=== PATIENT | male | born 1955 | race Hispanic/Latino ===

== ENCOUNTER 2019-02-24 23:53 | Emergency (ER) | payer OTHER ==
[2019-02-25 00:01] VITALS: RESP 16
[2019-02-25] MEDS ORDERED: Sodium Chloride 0.9% 1,000 ML IV STA (00:35)
--- NOTE | 2019-02-25 00:59 | ED PDOC ---
HPI: Psych/Substance Abuse Time Seen by Provider: 02/25/19 00:22 Chief Complaint (Nursing): Alcohol Ingestion Chief Complaint (Provider): Alcohol Ingestion ED Caveat: Intoxicated History Per: EMS History/Exam Limitations: intoxication Onset/Duration Of Symptoms: Unknown Current Symptoms Are (Timing): Still Present Modifying Factor(s): Alcohol Additional Complaint(s): 63 y/o male brought in by EMS for public alcohol intoxication and head injury. Patient was found laying on the ground with multiple abrasions to the right side of the face. History from patient limited due to intoxicated state. PMD: no provider Past Medical History Reviewed: Historical Data, Nursing Documentation, Vital Signs Vital Signs: Last Vital Signs Temp 98.2 F 02/24/19 23:57 Pulse 77 02/24/19 23:57 Resp 16 02/24/19 23:57 BP 120/75 02/24/19 23:57 Pulse Ox 99 02/24/19 23:57 Primary Care Provider: FAMILY PROVIDER,NO - Medical History PMH: No Chronic Diseases - Surgical History Surgical History: No Surg Hx - Family History Family History: States: Unknown Family Hx - Social History Alcohol: > 2 Drinks/Day - Allergies Allergies/Adverse Reactions: Allergies Allergy/AdvReac Type Severity Reaction Status Date / Time Unobtainable Allergy Verified 02/25/19 00:01 Review of Systems Review Of Systems: ROS cannot be obtained secondary to pt's inabilty to answer questions. Musculoskeletal: Positive for: Other (head injury/facial injury ) Psych: Positive for: Other (alcohol intoxication) Physical Exam - Reviewed Nursing Documentation Reviewed: Yes Vital Signs Reviewed: Yes - Physical Exam Appears: Positive for: No Acute Distress Head Exam: Negative for: NORMAL INSPECTION (Multiple abrasions noted to the right temporal and right lower jaw. No deformities) Skin: Positive for: Normal Color, Warm, Dry Neck: Positive for: Normal Cardiovascular/Chest: Positive for: Regular Rate, Rhythm. Negative for: Murmur Respiratory: Positive for: Normal Breath Sounds. Negative for: Respiratory Distress Gastrointestinal/Abdominal: Positive for: Normal Exam, Soft. Negative for: Tenderness Extremity: Positive for: Normal ROM Neurological/Psych: Positive for: Awake, Alert, Gait (unsteady), Other (slurred speech, alcohol on breath). Negative for: Oriented (Patient is confused), Motor/Sensory Deficits - Laboratory Results Result Diagrams: 02/25/19 01:44 02/25/19 01:44 - ECG O2 Sat by Pulse Oximetry: 99 (RA) Pulse Ox Interpretation: Normal - Progress Re-evaluation Time: 04:56 Condition: Re-examined, Improved Medical Decision Making Medical Decision Making: Time: 35 Impression: Alcohol intoxication, head/facial injury Plan: -- CT Head w/o Contrast -- CT Maxillofacial w/o Contrast -- Alcohol Serum -- BMP -- Urine Drug Screen -- CBC with Differentials -- Sodium Chloride IV 1000 mls/hr Time: 0125 EXAM: CT Head Without IV contrast. CLINICAL HISTORY: Head injury TECHNIQUE: Axial computed tomography images of the head/brain without intravenous contrast. COMPARISON: None provided. FINDINGS: BRAIN: No acute intraparenchymal hemorrhage. No mass lesion. No CT evidence for acute territorial infarct. No midline shift or extra-axial collections. VENTRICLES: No hydrocephalus. ORBITS: The orbits are unremarkable. SINUSES AND MASTOIDS: The paranasal sinuses and mastoid air cells are clear. BONES: No fracture. SOFT TISSUES: Unremarkable. IMPRESSION: No acute intracranial abnormality. Electronically signed on February 25, 2019 1:25:26 AM EDT by: Ruben Comer M.D., Certified by [facility]BR, Diagnostic Radiology Time: 129 EXAM: CT Maxillofacial without Intravenous Contrast. CLINICAL HISTORY: Facial injury TECHNIQUE: Axial computed tomography images of the face without intravenous contrast. Sagittal and coronal reformatted images were generated. 799.06 mGy-cm CONTRAST: Without COMPARISON: None provided. FINDINGS: BONES: Appreciable just to the right of midline within the maxilla is a small lucent abnormality measuring 1.2 cm on series 601, image 39. This could represent a small periodontal abscess. Other etiologies are not excluded. Please correlate clinically and if indicated followup can be obtained. No evidence for acute facial fractures. SOFT TISSUES: The soft tissues are unremarkable. SINUSES: There is a large mucous retention cyst or polyp within the left maxillary sinus. There is mucosal thickening of multiple bilateral ethmoid air cells. There is mild mucosal thickening of the left sphenoid sinus. There is mucosal thickening of the inferior frontal sinuses. ORBITS: The orbits are normal. No retrobulbar hematoma or mass. IMPRESSION: 1. Sinus disease as described. 2. Appreciable just to the right of midline within the maxilla is a small lucent abnormality measuring 1.2 cm on series 601, image 39. This could represent a small periodontal abscess. Other etiologies are not excluded. Please correlate clinically and if indicated followup can be obtained. 3. No evidence for acute facial fractures. Electronically signed on February 25, 2019 1:30:36 AM EDT by: Ruben Comer M.D., Certified by ABR, Diagnostic Radiology Scribe Attestation: Documented by Sarah Pretty, acting as a scribe Rio Banegas MD. Provider Scribe Attestation: All medical record entries made by the Scribe were at my direction and personally dictated by me. I have reviewed the chart and agree that the record accurately reflects my personal performance of the history, physical exam, medical decision making, and the department course for this patient. I have also personally directed, reviewed, and agree with the discharge instructions and disposition. Disposition - Clinical Impression Clinical Impression: Alcohol abuse, Head injury - Patient ED Disposition Is Patient to be Admitted: No Doctor Will See Patient In The: Office Counseled Patient/Family Regarding: Studies Performed, Diagnosis, Need For Followup - Disposition Referrals: [facility] [Outside] Disposition: Routine/Home Disposition Time: 04:56 Condition: IMPROVED Additional Instructions: IGOR ESCALONA, thank you for letting us take care of you today. Your provider was Fiona Banegas MD and you were treated for AMS. The emergency medical care you received today was directed at your acute symptoms. If you were prescribed any medication, please fill it and take as directed. It may take several days for your symptoms to resolve. Return to the Emergency Department if your symptoms worsen, do not improve, or if you have any other problems. Please contact your doctor or call one of the physicians/clinics you have been referred to that are listed on the Patient Visit Information form that is included in your discharge packet. Bring any paperwork you were given at discharge with you along with any medications you are taking to your follow up visit. Our treatment cannot replace ongoing medical care by a primary care provider outside of the emergency department. Thank you for allowing the [facility] team to be part of your care today. If you had an X-Ray or CT scan: A Radiologist will review the ED reading if any change in treatment is needed we will contact you. Instructions: Alcohol Use - When Is Drinking a Problem?, Minor Head Injury
[2019-02-25 01:52] LABS: BASO # 0.1 K/uL (0.0-0.2); BASO % 0.7 % (0.0-2.0); EOS # 0.2 K/uL (0.0-0.7); HEMOGLOBIN 14.4 g/dL (12.0-18.0); LYMPH # 1.7 K/uL (1.0-4.3); LYMPH % 20.3 % (20.0-40.0); MEAN CORPUSCULAR HEMOGLOBIN 31.4 pg (27.0-31.0); MEAN CORPUSCULAR HGB CONC 35.6 g/dL (33.0-37.0); MEAN PLATELET VOLUME 7.1 fl (7.2-11.7); MONO # 0.5 K/uL (0.0-0.8); MONO % 5.6 % (0.0-10.0); NEUT # 5.9 K/uL (1.8-7.0); NEUT % 71.4 % (50.0-75.0); RBC 4.58 Mil/uL (4.40-5.90); RED CELL DISTRIBUTION WIDTH 13.2 % (11.5-14.5); WHITE BLOOD COUNT 8.3 K/uL (4.8-10.8)
[2019-02-25 02:01] LABS: BLOOD UREA NITROGEN 8 mg/dl (9-20); CALCIUM 8.2 mg/dL (8.4-10.2); GFR NON-AFRICAN AMERICAN > 60
[2019-02-25 05:24] VITALS: BP 127/75; PULSE 80; TEMP 97.8; O2SAT 98
--- NOTE | 2019-02-25 09:57 | CT ---
Date of service: 02/25/2019 PROCEDURE: CT HEAD WITHOUT CONTRAST. HISTORY: head injury COMPARISON: None available. TECHNIQUE: Axial computed tomography images were obtained through the head/brain without intravenous contrast. Radiation dose: Total exam DLP = 1303.73 mGy-cm. This CT exam was performed using one or more of the following dose reduction techniques: Automated exposure control, adjustment of the mA and/or kV according to patient size, and/or use of iterative reconstruction technique. FINDINGS: HEMORRHAGE: No intracranial hemorrhage. BRAIN: No mass effect or edema. No atrophy or chronic microvascular ischemic changes. VENTRICLES: Unremarkable. No hydrocephalus. CALVARIUM: Unremarkable. PARANASAL SINUSES: Ethmoidal bilateral sinus site is suggested. Trace left sphenoid sinus thin mucosal thickening also noted. MASTOID AIR CELLS: Unremarkable as visualized. No inflammatory changes. OTHER FINDINGS: None. IMPRESSION: No intracranial hemorrhage or mass effect. Concordant results (preliminary interpretation) provided by [facility]. Sinusitis primarily ethmoidal air cells-as above. This portion was not mentioned on the prior preliminary [place] report Comments: Study marked for PA review .
--- NOTE | 2019-02-25 10:06 | CT ---
Date of service: 02/25/2019 PROCEDURE: CT MAXILLOFACIAL BONES WITHOUT CONTRAST HISTORY: facial injury COMPARISON: None available. TECHNIQUE: Contiguous axial CT images of the maxillofacial bones were obtained. Coronal and sagittal reformats were generated. Radiation dose: Total exam DLP = 799.06 mGy-cm. This CT exam was performed using one or more of the following dose reduction techniques: Automated exposure control, adjustment of the mA and/or kV according to patient size, and/or use of iterative reconstruction technique. FINDINGS: NASAL BONES: Unremarkable. ORBITS: Unremarkable. PARANASAL SINUSES/ MASTOIDS: Frontal air cells well-developed. There is focal soft tissue opacification of the right frontal air cell focal inflammatory changes here with or without retention cyst and/or polyp here is a consideration. This also some concomitant mucosal thickening here noted. Right sphenoid ethmoidal recess mucosal thickening suggested. Bilateral ethmoidal air cell cyst opacification-sinusitis inferred-right side posterior segment most notable. 2 cm left maxillary sinus retention cyst and/or polyp suggested. Each maxillary ostium infundibulum appears patent. Thin left-sided sphenoid sinus mucosal thickening-minimal chronic sinusitis here inferred. Mastoids appear unremarkable. MAXILLA: Right paracentral geographic mandibular intra osseous lucency without pathological fracture benign etiology. This projects near a right paracentral apical root-of periapical abscess is 1 consideration. Developmental variant is another. Benign etiology is favored over malignancy. Findings are noted on axial series 2, image 59 lesion is approximately 1 point 2 cm in size. MANDIBLE/ TEMPOROMANDIBULAR JOINTS: Unremarkable. SKULL BASE: Unremarkable. TEMPORAL BONES: Middle ears and mastoid grossly unremarkable. OTHER FINDINGS: None. IMPRESSION: Right frontal sinusitis, bilateral ethmoidal sinusitis-these findings appear acute. Left maxillary sinus large retention cyst and/or polyp. Trace left sphenoid chronic sinusitis Geographic right Central maxillary intraosseous radiolucent lesion-periapical abscess here 1 consideration. Other etiologies noted. Consider follow-up dental consultation
== END 2019-02-25 05:38 | disposition home or self-care (01) ==
LOC: H.ER 23:53
DX: F10.129 Alcohol abuse with intoxication, unspecified (principal); S09.90XA Unspecified injury of head, initial encounter; S09.93XA Unspecified injury of face, initial encounter
CPT/HCPCS: 70450; 70486; 80048; 80320; 85025; 96360; 99285; J7030

== ENCOUNTER 2019-02-25 23:51 | Emergency (ER) | payer OTHER ==
[2019-02-26 00:19] VITALS: TEMP 98
--- NOTE | 2019-02-26 01:50 | ED PDOC ---
HPI: Psych/Substance Abuse Time Seen by Provider: 02/26/19 01:30 Chief Complaint (Nursing): Alcohol Ingestion Chief Complaint (Provider): etoh History Per: EMS Additional Complaint(s): 63 y/o male brought in by EMS for evaluation of alcohol intoxication. Patient sleeping but arousable to verbal stimuli, denies acute complaints. Patient with scabbed abrasions to right side of face/mouth; was evaluated here yesterday for same with fall and had CT's. Past Medical History Reviewed: Historical Data, Nursing Documentation, Vital Signs Vital Signs: Last Vital Signs Temp 98.0 F 02/26/19 00:17 Pulse 95 H 02/26/19 00:17 Resp 16 02/26/19 00:17 BP 136/79 02/26/19 00:17 Pulse Ox 98 02/26/19 00:17 Primary Care Provider: FAMILY PROVIDER,NO - Medical History PMH: No Chronic Diseases - Surgical History Surgical History: No Surg Hx - Family History Family History: States: Unknown Family Hx - Home Medications Home Medications: Ambulatory Orders Medication Instructions Recorded Amoxicillin/Clavulanate [Augmentin 1 tab PO BID #20 tab 02/25/19 875 MG-125 MG] Amoxicillin/Clavulanate [Augmentin 1 tab PO Q12 #14 tab 02/26/19 875 MG-125 MG] - Allergies Allergies/Adverse Reactions: Allergies Allergy/AdvReac Type Severity Reaction Status Date / Time No Known Allergies Allergy Verified 02/26/19 00:19 Review of Systems ROS Statement: Except As Marked, All Systems Reviewed And Found Negative Physical Exam - Reviewed Nursing Documentation Reviewed: Yes Vital Signs Reviewed: Yes - Physical Exam Appears: Positive for: Well, Non-toxic, No Acute Distress Head Exam: Positive for: NORMAL INSPECTION, NORMOCEPHALIC. Negative for: ATRAUMATIC (scabbed abrasion right frontal scalp) Skin: Positive for: Normal Color Eye Exam: Positive for: EOMI, PERRL ENT: Positive for: Normal ENT Inspection, Other (scabbed abrasion right side of mouth) Cardiovascular/Chest: Positive for: Regular Rate, Rhythm Respiratory: Positive for: Normal Breath Sounds Gastrointestinal/Abdominal: Positive for: Normal Exam Back: Positive for: Normal Inspection Extremity: Positive for: Normal ROM Neurological/Psych: Positive for: Awake, Alert, Oriented (x2) - ECG O2 Sat by Pulse Oximetry: 98 - Progress ED Course And Treament: -accucheck 2:00 Patient sleeping; no distress 3:30 Patient sleeping; no distress 5:00 Patient awake, alert, oriented x3. Ambulating steady gait. Denies acute medical or psychiatric complaints. States he tends to "binge drink" while he is away for work and thinks since being on anti-depressants it is making his blackouts "worse" Advised not to drink on anti-depressants As per records, patient had Augmentin called into a pharmacy in [place] for acute sinusitis read on official CT maxillofacial from yesterday Will provide rx for Augmentin Advised follow up PMD Return precautions given Disposition - Clinical Impression Clinical Impression: Alcohol abuse, Sinusitis - Patient ED Disposition Is Patient to be Admitted: No Counseled Patient/Family Regarding: Studies Performed, Diagnosis, Need For Followup, Rx Given - Disposition Disposition: Routine/Home Disposition Time: 04:15 Condition: IMPROVED Prescriptions: Amoxicillin/Clavulanate [Augmentin 875 MG-125 MG] 1 tab PO Q12 #14 tab Instructions: Sinusitis in Adults, Alcohol Abuse and Alcoholism (DC) Forms: [facility] [facility] ([place])
[2019-02-26 03:40] VITALS: BP 140/72; PULSE 86; RESP 18
[2019-02-26 04:15] VITALS: O2SAT 98
== END 2019-02-26 06:27 | disposition home or self-care (01) ==
LOC: H.ER 23:51
DX: F10.10 Alcohol abuse, uncomplicated (principal); J32.9 Chronic sinusitis, unspecified